=== PATIENT | male | born 1930 | race Hispanic/Latino ===

== ENCOUNTER 2019-04-20 16:28 | Inpatient (IN) | payer OTHER ==
[~2019-04-20] VITALS: Ht 167.6 cm; Wt 73.0 kg
[2019-04-20] MEDS ORDERED: DILTIAZEM HCL 125 MG/25 ML VIAL IV ONE (16:44)
[2019-04-20] MEDS ORDERED: SODIUM CHLORIDE 0.9% 100 ML IV ONE (16:45)
[2019-04-20] MEDS ORDERED: FUROSEMIDE 10 MG/ML 4ML VIAL ONE (17:04)
[2019-04-20 17:26] LABS: BASOPHILS % (AUTO) 0.4 % (0.0-5.0); EOSINOPHILS % (AUTO) 1.2 % (0.0-8.0); HEMATOCRIT 34.1 % (42-54); LYMPHOCYTES % (AUTO) 14.5 % (21.0-51.0); MEAN CORPUSCULAR HEMOGLOBIN 27.4 pg (27.0-33.0); MEAN CORPUSCULAR HGB CONC 32.9 g/dL (32.0-36.0); MEAN CORPUSCULAR VOLUME 83.3 fL (79-99); MONOCYTES % (AUTO) 10.1 % (3.0-13.0); NEUTROPHILS % (AUTO) 73.8 % (40.0-77.0); PLATELET COUNT (AUTO) 165 K/uL (130-400); RED CELL DISTRIBUTION WIDTH 15.8 % (11.0-15.5); WHITE BLOOD COUNT (AUTO) 5.7 K/uL (4.8-10.8)
[2019-04-20 17:31] LABS: POTASSIUM 4.1 mmol/L (3.5-5.1)
[2019-04-20 17:33] LABS: INR 0.99 (0.85-1.15); PARTIAL THROMBOPLASTIN TIME 23.3 SEC (26.3-35.5); PROTHROMBIN TIME 10.4 SEC (9.6-11.6)
[2019-04-20 17:36] LABS: ALBUMIN 3.1 g/dL (3.5-5.0); BILIRUBIN,TOTAL 0.3 mg/dL (0.2-1.0); TOTAL PROTEIN, SERUM 6.6 g/dL (6.0-8.3)
[2019-04-20] MEDS ORDERED: METOPROLOL TARTRATE 1 MG/ML 5ML VIAL IV ONE (17:42)
[2019-04-20 17:49] LABS: CREATINE KINASE, TOTAL 98 U/L (21-232); MYOGLOBIN 74 ng/mL (10-92); TROPONIN I < 0.04 ng/mL (0.00-0.06)
[2019-04-20] MEDS ORDERED: METOPROLOL TARTRATE 1 MG/ML 5ML VIAL IV PRN (20:15)
[2019-04-20] MEDS ORDERED: FUROSEMIDE 10 MG/ML 2ML VIAL IV SCH (20:15)
[2019-04-20] MEDS ORDERED: FAMOTIDINE 20MG TAB 20 MG TAB ONE (23:00)
[2019-04-21 05:30] LABS: BASOPHILS % (AUTO) 0.6 % (0.0-5.0); EOSINOPHILS % (AUTO) 1.7 % (0.0-8.0); HEMATOCRIT 33.7 % (42-54); MEAN CORPUSCULAR HEMOGLOBIN 27.3 pg (27.0-33.0); MEAN CORPUSCULAR HGB CONC 32.8 g/dL (32.0-36.0); MEAN CORPUSCULAR VOLUME 83.3 fL (79-99); MONOCYTES % (AUTO) 10.3 % (3.0-13.0); NEUTROPHILS % (AUTO) 69.4 % (40.0-77.0); PLATELET COUNT (AUTO) 143 K/uL (130-400); RED BLOOD CELL COUNT(AUTO) 4.05 MIL/uL (4.50-6.20); RED CELL DISTRIBUTION WIDTH 15.6 % (11.0-15.5); WHITE BLOOD COUNT (AUTO) 5.4 K/uL (4.8-10.8)
[2019-04-21 05:43] LABS: BILIRUBIN,TOTAL 0.3 mg/dL (0.2-1.0); MAGNESIUM 1.9 mg/dL (1.80-2.40); TOTAL PROTEIN, SERUM 6.3 g/dL (6.0-8.3)
[2019-04-21 05:56] LABS: B-TYPE NATRIURETIC PEPTIDE 170 pg/mL (0-100)
[2019-04-21] MEDS ORDERED: FUROSEMIDE 10 MG/ML 2ML VIAL ONE (06:10)
[2019-04-21] MEDS ORDERED: ENOXAPARIN SODIUM 30 MG/0.3 ML SQ SCH (09:00)
[2019-04-21] MEDS: ASPIRIN 81MG TAB.CHEW PO SCH (09:00)
[2019-04-21] MEDS: FAMOTIDINE 20MG TAB 20 MG TAB PO SCH (09:00)
[2019-04-21] MEDS: METOPROLOL TARTRATE 25 MG TAB PO SCH ×2 (09:00→21:14)
[2019-04-21] MEDS ORDERED: FUROSEMIDE 40 MG TABLET PO SCH (09:00)
[2019-04-21] MEDS ORDERED: ENOXAPARIN SODIUM 30 MG/0.3 ML SQ ONE (10:03)
[2019-04-21] MEDS ORDERED: ASPIRIN 81MG TAB.CHEW ONE (10:03)
[2019-04-21] MEDS ORDERED: FAMOTIDINE 20MG TAB 20 MG TAB ONE (10:03)
[2019-04-21] MEDS ORDERED: METOPROLOL TARTRATE 25 MG TAB ONE (11:43)
[2019-04-21] MEDS ORDERED: METOPROLOL TARTRATE 1 MG/ML 5ML VIAL IV ONE (12:35)
[2019-04-21] MEDS ORDERED: APIXABAN 5 MG TABLET PO SCH (12:45)
[2019-04-21] MEDS ORDERED: FENTANYL CITRATE PF 50 MCG/1 ML 2ML VIAL IVP SCH (12:45)
[2019-04-21] MEDS ORDERED: MIDAZOLAM HCL 1 MG/ML 2ML VIAL IVP SCH (12:45)
[2019-04-21] MEDS ORDERED: APIXABAN 2.5 MG TABLET PO ONE (14:06)
[2019-04-21] MEDS ORDERED: LIDOCAINE HCL 2% VISCOUS 15 ML UDCUP ONE (14:20)
--- NOTE | 2019-04-21 14:30 | NUR ---
JOAO WITH CARDIOVERSION PROCEDURE PERFORMED BY DR. MARTINEZ. PATIENT TOLERATED PROCEDURE WELL. END OF PROCEDURE AT 1442. PT RECOVERED IN ROOM. REPORT GIVEN TO [place]. PATIENT TRANSPORTED TO ED AT 1520 VIA BED STABLE, RESPONDING TO VERBAL COMMANDS, NO C/O PAIN
[2019-04-21 20:58] VITALS: BP 141/85
[2019-04-21] MEDS: INSULIN HUMULIN R 100 UNIT/ML 3ML SQ SCH (21:00)
[2019-04-21] MEDS ORDERED: LORAZEPAM 2 MG/ML 1 ML VIAL ONE (23:06)
[2019-04-21] MEDS ORDERED: LORAZEPAM 2 MG/ML 1 ML VIAL IVP ONE (23:15)
--- NOTE | 2019-04-21 23:44 | NUR ---
assessment Pt AOX3, stable, denies any chest pain and SOB. SR 90. patient uncooperative at this point, does not want vitals taken, states does not want to be in the hospital, very anxious and agitated, pacing in room with the walker. Son at bedside, call light within reach. Orders for Ativan received will carry out, [employer]EARCH MANAGEMENT ASSOCIATE notified.
[2019-04-22] MEDS ORDERED: CYAN-35 PO (02:01)
[2019-04-22] MEDS ORDERED: LISI10TA7 PO (02:01)
[2019-04-22] MEDS ORDERED: ASPI-1197 PO (02:01)
[2019-04-22] MEDS ORDERED: FERR325T22 PO (02:01)
[2019-04-22] MEDS ORDERED: ALEN70SO3 PO (02:01)
[2019-04-22] MEDS ORDERED: METF500S7 PO (02:01)
[2019-04-22] MEDS ORDERED: SIMV5TAB58 PO (02:01)
--- NOTE | 2019-04-22 03:38 | NUR ---
Confused patient removed tele monitor, refusing schedule laboratory blood draw, and vitals Q4H. Patient alert to self, not time or place. Patient pacing in room and yelling at son requesting to leave hospital and wants to go home. Son at bedside and is aware of situation.
[2019-04-22 04:24] VITALS: BP 114/70
[2019-04-22] MEDS: INSULIN HUMULIN R 100 UNIT/ML 3ML SQ SCH ×2 (05:46→11:30)
[2019-04-22 06:25] LABS: MAGNESIUM 1.9 mg/dL (1.80-2.40); PHOSPHORUS 4.5 mg/dL (2.5-4.9)
[2019-04-22 07:25] VITALS: BP 143/80
--- NOTE | 2019-04-22 08:00 | NUR ---
ASSESSMENT PT IS AWAKE AND ALERT, CONFUSED, SITTING UP IN CHAIR. SON IS IN ROOM WITH PATIENT. PATIENT DOES KNOW HIS NAME AND . BREATHING PATTERN IS EVEN AND UNLABORED. NO VISIBLE SIGNS OF DISTRESS NOTED, DR Curtis MARTINEZ ROUNDED AND SAW PATIENT. STATES THAT DELIRIUM/CONFUSION MIGHT BE RELATED TO SEDATION FOR CARDIOVERSION YESTERDAY AND ATIVAN MED GIVEN LAST NIGHT. PATIENT HAS EQUAL STRENGTHS BILATERALLY UPPER AND LOWER EXTREMITIES, NO FACIAL DROOP NOTED. SON REMAINS AT CHAIR SIDE WITH FATHER, CALL LIGHT WITHIN REACH.
[2019-04-22] MEDS ORDERED: METO-408 PO (08:17)
[2019-04-22] MEDS ORDERED: APIX2.5T PO (08:17)
[2019-04-22] MEDS ORDERED: MAGNESIUM 2GM PREMIX 50ML 50 ML IV PRN (08:30)
[2019-04-22 08:36] LABS: CREATININE 1.2 mg/dL (0.5-1.5); POTASSIUM 4.3 mmol/L (3.5-5.1)
[2019-04-22] MEDS: ASPIRIN 81MG TAB.CHEW PO SCH (08:42)
[2019-04-22] MEDS: FAMOTIDINE 20MG TAB 20 MG TAB PO SCH (08:42)
[2019-04-22] MEDS: METOPROLOL TARTRATE 25 MG TAB PO SCH ×2 (08:43→13:54)
[2019-04-22] MEDS ORDERED: APIXABAN 5 MG TABLET PO SCH (09:00)
[2019-04-22 11:09] VITALS: BP 150/79
--- NOTE | 2019-04-22 11:45 | NUR ---
STATUS SITTING UP IN CHAIR, FAMILY IS AT BEDSIDE. PATIENT IS CONFUSED BUT CALM. CALL LIGHT WITHIN REACH.
--- NOTE | 2019-04-22 12:16 | NUR ---
D/C PLAN CM spoke to pts spouse regarding d/c planning. Pt lives with spouse. Denies having any home health or provider services. Spouse assist pt with ADL's. Pt uses wk for ambulation. Plan to home. Spouse declined short term snf/rehab at this time. CM to f/u. Addendum: 04/22/19 at 1217 by SCOOBY MCCLOUD CM Amended: Links added.
--- NOTE | 2019-04-22 14:00 | NUR ---
UP TO RESTROOM WITH FAMILY ASSISTANCE
[2019-04-22 14:46] VITALS: BP 127/69
--- NOTE | 2019-04-22 15:00 | NUR ---
STATUS PATIENT IS AAOX3 DENIES CP DENIES SOB NO COMPLAINTS WALKING UP AND FROM RESTROOM WITH FAMILY ASSISTANCE, HAD A BM. BREATHING PATTERN IS EVEN AND UNLABORED. DR GARCIA MADE AWARE, OK TO DC HOME.
[2019-04-22] MEDS ORDERED: FLU VACC QS2019-20 36MOS UP/PF 60 MCG/0.5 ML ML IM ONE (15:15)
--- NOTE | 2019-04-22 16:00 | NUR ---
DISCHARGE SPOUSE AND FAMILY MEMBERS VERBALIZE DC INSTRUCTIONS UNDERSTANDING, AGREE TO TAKE MEDS ORDERED, AGREE TO FOLLOW UP WITH DR SIMMS OUTPT. PIV REMOVED CATH TIP INTACT, TELE PACK REMOVED ALL QUESTIONS ANSWERED, DOWN VIA WC WITH FAMILY AND NURSE AIDE TO VEHICLE.
[2019-04-23] MEDS ORDERED: POLYETHYLENE GLYCOL 3350 17 GM POWD.PACK PO SCH (09:00)
== END 2019-04-22 16:00 | disposition home or self-care (01) | DRG 291 ==
LOC: EDH 16:28 → EDHIP 20:12 → 2AH 04-21 17:57
PROVIDERS: ADMIT Internal Medicine; ATTEND Internal Medicine
PROC: 5A2204Z Restoration of Cardiac Rhythm, Single (ICD-10-PCS; principal; 2019-04-20)
PROC: B246ZZ4 Ultrasonography of Right and Left Heart, Transesophageal (ICD-10-PCS; 2019-04-20)
PROC: 3E02340 Introduction of Influenza Vaccine into Muscle, Percutaneous Approach (ICD-10-PCS; 2019-04-20)
DX: I11.0 Hypertensive heart disease with heart failure (principal); G92 Toxic encephalopathy; I48.3 Typical atrial flutter; D68.59 Other primary thrombophilia; I45.89 Other specified conduction disorders; I48.91 Unspecified atrial fibrillation; E11.42 Type 2 diabetes mellitus with diabetic polyneuropathy; E78.00 Pure hypercholesterolemia, unspecified; E78.5 Hyperlipidemia, unspecified; I35.1 Nonrheumatic aortic (valve) insufficiency; K59.00 Constipation, unspecified; M81.0 Age-related osteoporosis without current pathological fracture; N48.89 Other specified disorders of penis; Z79.01 Long term (current) use of anticoagulants; Z79.899 Other long term (current) drug therapy; Z92.3 Personal history of irradiation; Z92.21 Personal history of antineoplastic chemotherapy; Z87.891 Personal history of nicotine dependence; Z85.46 Personal history of malignant neoplasm of prostate; Z82.49 Family history of ischemic heart disease and other diseases of the circulatory system; Z23 Encounter for immunization; I50.33 Acute on chronic diastolic (congestive) heart failure
CPT/HCPCS: 36415; 71045; 80048; 80053; 80061; 82550; 82948; 83036; 83735; 83874; 83880; 84100; 84443; 84484; 85025; 85610; 85730; 92960; 93005; 93313; 99152; 99291; G0378; J1650; J1940; J2060; J2250; J3010; J3490; Q2035

== ENCOUNTER 2019-06-08 22:21 | Emergency (ER) | payer OTHER ==
[~2019-06-08 22:21] MED LIST: ALEN70SO3 PO; APIX2.5T PO; CYAN-35 PO; FERR325T22 PO; LISI10TA7 PO; METF500S7 PO; METO-408 PO; SIMV5TAB58 PO
[2019-06-08] MEDS ORDERED: ZOSYN 3.375GM+NS 50ML 50 ML IV ONE (23:08)
[2019-06-08] MEDS ORDERED: SODIUM CHLORIDE 0.9% 1000ML 2,000 ML IV ONE (23:08)
[2019-06-08 23:19] LABS: BASOPHILS % (AUTO) 0.2 % (0.0-5.0); EOSINOPHILS % (AUTO) 0.1 % (0.0-8.0); HEMATOCRIT 35.4 % (42-54); LYMPHOCYTES % (AUTO) 2.8 % (21.0-51.0); MEAN CORPUSCULAR HEMOGLOBIN 25.3 pg (27.0-33.0); MEAN CORPUSCULAR HGB CONC 31.6 g/dL (32.0-36.0); MEAN CORPUSCULAR VOLUME 79.9 fL (79-99); MONOCYTES % (AUTO) 1.5 % (3.0-13.0); NEUTROPHILS % (AUTO) 95.4 % (40.0-77.0); NUCLEATED RED BLOOD CELLS 0.2 % (0.0-0.19); PLATELET COUNT (AUTO) 130 K/uL (130-400); RED BLOOD CELL COUNT(AUTO) 4.43 MIL/uL (4.50-6.20)
[2019-06-08 23:28] LABS: INR 1.29 (0.85-1.15); PARTIAL THROMBOPLASTIN TIME 24.5 SEC (26.3-35.5); PROTHROMBIN TIME 13.4 SEC (9.6-11.6)
[2019-06-08 23:40] LABS: ALBUMIN 3.3 g/dL (3.5-5.0); BILIRUBIN,TOTAL 1.4 mg/dL (0.2-1.0); CREATININE 1.9 mg/dL (0.5-1.5); POTASSIUM 4.4 mmol/L (3.5-5.1); TOTAL PROTEIN, SERUM 6.6 g/dL (6.0-8.3)
[2019-06-09 00:13] LABS: B-TYPE NATRIURETIC PEPTIDE 260 pg/mL (0-100)
[2019-06-09] MEDS ORDERED: SODIUM CHLORIDE 0.9% 1000ML 1,000 ML IV SCH (02:38)
[2019-06-09] MEDS ORDERED: METHYLPREDNISOLONE SOD SUCC 125MG/2ML VIAL IV SCH (02:45)
[2019-06-09] MEDS ORDERED: LACTULOSE 20 GM/30 ML UDCUP PO PRN (02:45)
[2019-06-09] MEDS ORDERED: ONDANSETRON HCL 4 MG/2 ML VIAL IV PRN (02:45)
[2019-06-09] MEDS ORDERED: ACETAMINOPHEN 325 MG TAB PO PRN ×2 (02:45)
[2019-06-09] MEDS ORDERED: PHARMACY COMMUNICATION MISC SCH (03:45)
[2019-06-09] MEDS ORDERED: ZOSYN 3.375GM+NS 50ML 50 ML IV SCH (05:00)
[2019-06-09] MEDS ORDERED: IPRATROPIUM/ALBUTEROL SULFATE 3 ML SOLUTION IH SCH (06:00)
[2019-06-09] MEDS ORDERED: INSULIN HUMULIN R 100 UNIT/ML 3ML SQ SCH (07:30)
[2019-06-09] MEDS ORDERED: FAMOTIDINE/PF 20 MG/2 ML VIAL IV SCH (09:00)
[2019-06-09] MEDS ORDERED: ENOXAPARIN SODIUM 30 MG/0.3 ML SQ SCH (09:00)
== END 2019-06-09 03:36 | disposition left against medical advice (07) ==
LOC: EDH 22:21
DX: A41.9 Sepsis, unspecified organism (principal); K81.0 Acute cholecystitis; I10 Essential (primary) hypertension; E11.9 Type 2 diabetes mellitus without complications; J44.9 Chronic obstructive pulmonary disease, unspecified; I48.92 Unspecified atrial flutter; Z98.890 Other specified postprocedural states
CPT/HCPCS: 36415 ×2; 71045; 74176; 76705; 80053; 82550; 83605 ×2; 83690; 83880; 84145; 84484 ×2; 85025; 85610; 85730; 87040 ×2; 87804 ×2; 93005; 96365; 99285; J2543; J7030